=== PATIENT | male | born 1970 | race Caucasian/White ===

== ENCOUNTER 2017-10-06 07:03 | Day surgery (SDC) | payer OTHER ==
[~2017-10-06] VITALS: Ht 185.4 cm; Wt 155.1 kg
[~2017-10-06 07:03] MED LIST: BACLOFEN20 MG PO; DAILY MULTIPLE1 EACH PO; FISH OIL 1,0001 EAC3 PO; MIRALAX17 GM PO; MOBIC15 MG PO; NORCO 10-325 T1 EACH PO; SERTRALINE HCL50 MG PO; STAXYN10 MG PO; UNITHROID50 MCG PO; VITAMIN D250000 UNIT PO
--- NOTE | 2017-10-06 08:56 | NUR ---
10/06/17 0856 Mesha Benoit 0852 PATIENT ARRIVES TO PACU ASLEEP, RESPONDS TO REPEATED VERBAL STIMUIL. RESP EVEN AND UNLABORED, NC AT 23 LITERS, TURNED OFF ON ARRIVAL TO PACU, SATS 93% ON ROOM AIR.
--- NOTE | 2017-10-06 09:49 | NUR ---
PT ALERT, ORIENTED AND ADAMANT ABOUT DRIVING HIMSELF HOME FOLLOWING SCOPE. I DID OFFER HIM A CARE RIDE, AND STRONGLY ADVISED HIM AGAINST DRIVING HIMSELF, AND ALL HE WOULD SAY IS "WE"LL SEE". GOOD VISIT, PT DID REQUEST PRAYER, WILL FOLLOW NEEDED
--- NOTE | 2017-10-07 11:54 | OR ---
[facility] [address], [place] [address] Signed DATE OF OPERATION: 10/06/2017 SURGEON: Ml Handy MD PREOPERATIVE DIAGNOSES: 1. Heme-positive stool x2. 2. Family history of colon cancer (paternal grandfather and father). POSTOPERATIVE DIAGNOSIS: Normal-appearing colon and ilium except for internal hemorrhoids. PROCEDURE: Total colonoscopy to cecum with intubation of the ileum and biopsy of ileum. ANESTHESIA: Intravenous sedation, fentanyl 150 mcg, Versed 8 mg. INDICATION: This 47-year-old morbidly obese white man is a patient of Dr. Breen, who is noted to have heme-positive stool on fecal occult blood testing x2. He has had no gross blood per rectum. He does have family history of colon cancer in his father and paternal grandfather. He is admitted at this time to undergo colonoscopy. He understands the risks of bleeding, infection, and perforation. FINDINGS: The prep was good. Complete colonoscopy was undertaken to the cecum. An intubation of the ileum was accomplished as well. Biopsies were taken of the ileum, though there was no sign of obvious ileitis per se. The remaining colon was normal except for internal hemorrhoids on retroflexed view of the rectum. DESCRIPTION OF PROCEDURE: The patient was brought to the endoscopy suite and placed in lateral decubitus position, given intravenous sedation to the point of slurred speech and nystagmus. Digital rectal examination was normal. The Olympus video colonoscope was passed in the rectum and manipulated throughout the colon ultimately intubating the cecum itself. The ileocecal valve was easily intubated and examination of the terminal ilium showed it to be reasonably normal. Biopsies obtained there nevertheless. The scope was withdrawn to the cecum and carefully withdrawn from the remaining colon. Irrigation undertaken as needed. Retroflexed view in the rectum was undertaken showing internal hemorrhoidal changes. No sign of active bleeding or other problem. The scope was removed. The Electronically Signed By: ML HANDY MD 10/07/17 1154 PATIENT NAME: SISSY HAYS OPERATIVE REPORT DATE OF : 72 REPORT #: [id number] PHYSICIAN: ML HANDY MD PCP: GERARD BREEN DO REPORT IS CONFIDENTIAL AND NOT TO BE RELEASED WITHOUT AUTHORIZATION [facility] [address], [place] [address] Signed patient was taken to recovery in good condition. CONCLUDING DIAGNOSIS: Essentially normal colon and ileum except for internal hemorrhoidal changes. PLAN: Recommend high-fiber diet. Repeat colonoscopy in 5 years based on family history, sooner if clinically indicated. MD JJ Pemberton/BARBL /[id number] cc: Gerard Breen DO Copies: GERARD BREEN DO ~ Electronically Signed By: ML HANDY MD 10/07/17 1154 PATIENT NAME: SISSY HAYS OPERATIVE REPORT DATE OF : 72 REPORT #: [id number] PHYSICIAN: ML HANDY MD PCP: GERARD BREEN DO REPORT IS CONFIDENTIAL AND NOT TO BE RELEASED WITHOUT AUTHORIZATION
== END 2017-10-06 09:40 | disposition home or self-care (01) ==
LOC: DS 07:03 → OPS 07:03 → DS 08:30 → OPS 08:30
PROVIDERS: Surgery
PROC: 0DBB8ZZ Excision of Ileum, Via Natural or Artificial Opening Endoscopic (ICD-10-PCS; 2017-10-06)
PROC: 0DBH8ZZ Excision of Cecum, Via Natural or Artificial Opening Endoscopic (ICD-10-PCS; principal; 2017-10-06 08:30)
DX: K64.8 Other hemorrhoids (principal); K21.9 Gastro-esophageal reflux disease without esophagitis; Z87.891 Personal history of nicotine dependence; G47.30 Sleep apnea, unspecified; E66.01 Morbid (severe) obesity due to excess calories; M47.812 Spondylosis without myelopathy or radiculopathy, cervical region; Z80.0 Family history of malignant neoplasm of digestive organs; Z98.890 Other specified postprocedural states; Z68.42 Body mass index [BMI] 45.0-49.9, adult
CPT/HCPCS: 99153; G0500; J2250; J3010; J7120

== ENCOUNTER 2017-11-16 12:36 | Emergency (ER) | payer OTHER ==
[~2017-11-16] VITALS: Ht 185.4 cm; Wt 154.2 kg
--- OUTSIDE RECORDS SUMMARY | ~2017-11-16 | XMS | Encounter Summary ---
Demographics + + + | Address | [address] | | | [place] [address] | + + + | Home Phone | | + + + | Preferred Language | Unknown | + + + | Marital Status | | + + + | Judaism Affiliation | 1013 | + + + | Race | Unknown | + + + | Ethnic Group | Unknown | + + + Author + + + | Author | Merged With [facility] | | | and [place] | + + + | Organization | Merged With [facility] | | | and [place] | + + + | Address | Unknown | + + + | Phone | Unavailable | + + + Support + + +---------+ + | Name | Relationship | Address | Phone | + + +---------+ + | Lopez Carver | ECON | Unknown | | + + +---------+ + Care Team Providers + +------+ + | Care Certified Addiction Counselor Name | Role | Phone | + +------+ + | Gerard Olivas DO | PCP | | + +------+ + Encounter Details +--------+ + + + + | Date | Type | Department | Care Team | Description | +--------+ + + + + | 11/14/ | Orders Only | [facility] | Maico Klein MD | Cervical spondylosis | | 2018 | | NEUROSURGERY [address] | [address] [place] | with radiculopathy | | | | [address] [place] | [address] | (Primary Dx); | | | | [place] | [address] | Cervical spinal cord | | | | [address] | | compression ([facility]); | | | | [phone] | | Cervical cord | | | | | | myelomalacia ([facility]); | | | | | | Cervical spondylosis | | | | | | with myelopathy; | | | | | | Degenerative disc | | | | | | disease, cervical; | | | | | | Cervical spinal | | | | | | stenosis; Foraminal | | | | | | stenosis of cervical | | | | | | region | +--------+ + + + + Social History + + + +--------+ + | Tobacco Use | Types | Packs/Day | Years | Date | | | | | Used | | + + + +--------+ + | Former Smoker | Cigarettes | 0.25 | 20 | 06/16/1993 - | | | | | | 03/27/2013 | + + + +--------+ + + +------+---+---+ | Smokeless Tobacco: | Chew | | | | Current User | | | | + +------+---+---+ + + | Comments: Currently using chew | + + + + +---------+ + | Alcohol Use | Drinks/We | oz/Week | Comments | | | ek | | | + + +---------+ + | Yes | 0 | 0.0 | Rarely | | | Standard | | | | | drinks or | | | | | | | | | | equivalen | | | | | t | | | + + +---------+ + + + + | Sex Assigned at | Date Recorded | | | | + + + | Not on file | | + + + as of this encounter Plan of Treatment +--------+---------+ + + + | Date | Type | Specialty | Care Team | Description | +--------+---------+ + + + | 12/08/ | Office | Sleep Medicine | Lissa Reyes MD | | | 2017 | Visit | | [address] | | | | | | [place] | | | | | | [address] | | | | | | | | +--------+---------+ + + + as of this encounter Visit Diagnoses + + | Diagnosis | + + | Cervical spondylosis with radiculopathy - Primary | + + | Cervical spondylosis with myelopathy | + + | Cervical spinal cord compression (HCC) | + + | Unspecified disease of spinal cord | + + | Cervical cord myelomalacia (HCC) | + + | Other myelopathy | + + | Cervical spondylosis with myelopathy | + + | Degenerative disc disease, cervical | + + | Degeneration of cervical intervertebral disc | + + | Cervical spinal stenosis | + + | Spinal stenosis in cervical region | + + | Foraminal stenosis of cervical region | + + | Spinal stenosis in cervical region | + +"
--- OUTSIDE RECORDS SUMMARY | ~2017-11-16 | XMS | Encounter Summary ---
Demographics + + + | Address | [address] | | | [place] [address] | + + + | Home Phone | | + + + | Preferred Language | Unknown | + + + | Marital Status | | + + + | Presybeterian Affiliation | 1013 | + + + | Race | Unknown | + + + | Ethnic Group | Unknown | + + + Author + + + | Author | [facility] | | | and [place] | + + + | Organization | [facility] | | | and [place] | + + + | Address | Unknown | + + + | Phone | Unavailable | + + + Support + + +---------+ + | Name | Relationship | Address | Phone | + + +---------+ + | Lopez Carver | ECON | Unknown | | + + +---------+ + Care Team Providers + +------+ + | Care Tubing Tester Name | Role | Phone | + +------+ + | Gerard Olivas DO | PCP | | + +------+ + Reason for Referral Evaluate & Treat (Routine) + + + + + + + | Status | Reason | Specialty | Diagnoses / | Referred By | Referred To | | | | | Procedures | Contact | Contact | + + + + + + + | Authorized | Specialty | Sleep | Diagnoses | [place] | | | Services | Medicine | PENNY | Raudel | [facility] | | | Required | | (obstructive | [place] | Disorder [address] | | | | | sleep | [address] | | | | | apnea) | [address] | [place], | | | | | | [place] [address] | [place] [address] | | | | | | [place], | Phone: | | | | | | [place] [address] | [phone] | | | | | | Phone: | Fax: | | | | | | [phone] | [phone] | | | | | | Fax: | | | | | | | [phone] | | + + + + + + + Reason for Visit + + + | Reason | Comments | + + + | Follow-up | Discuss MRI | + + + Encounter Details +--------+---------+ + + + | Date | Type | Department | Care Team | Description | +--------+---------+ + + + | 11/10/ | Office | [facility] [place] | Raudel Brown | Cervical cord | | 2018 | Visit | NEUROSURGERY [address] | [place] [address] | myelomalacia (HCC) | | | | [address] [place] [address] | [address] [place] | (Primary Dx); | | | | [place], [place] | [place] | Cervical spinal cord | | | | [address] | [address] | compression (HCC); | | | | [phone] | | Cervical spondylosis | | | | | | with radiculopathy; | | | | | | PENNY (obstructive | | | | | | sleep apnea); | | | | | | Cervical spondylosis | | | | | | with myelopathy; | | | | | | Degenerative disc | | | | | | disease, cervical | +--------+---------+ + + + Social History + + [...] + + + as of this encounter Last Filed Vital Signs + + + + | Vital Sign | Reading | Time Taken | + + + + | Blood Pressure | 130/78 | 11/10/2017851 PDT | + + + + | Pulse | 67 | 11/10/2017851 PDT | + + + + | Temperature | - | - | + + + + | Respiratory Rate | - | - | + + + + | Oxygen Saturation | - | - | + + + + | Inhaled Oxygen | - | - | | Concentration | | | + + + + | Weight | 155.6 kg (343 lb 0.6 | 11/10/2017851 PDT | | | oz) | | + + + + | Height | 185.4 cm (6' 1") | 11/10/2017851 PDT | + + + + | Body Mass Index | 45.26 | 11/10/2017851 PDT | + + + + in this encounter Instructions Patient Instructions - Diya Kaminski, Coper Hand - 11/10/2017844 PDTIt wa s a pleasure to see you today. Here is what we discussed. - Let pain be your guide. If you are doing an activity that starts causing you pain back of f and ease back into it slowly. We don't want you taking any risks that do not need to be ta sin. - As you agreed we will discuss your case with Dr. Klein to begin to seek authorization and c tonio for your operation. - If you do choose surgery it would look something like this: -1 day in the hospital, spend the first month lifting no more than 5lbs, no bending, liftin g above your head, or turning your head. -You would wear a neck brace for at least the first month. You will probably have some diff iculty swallowing after surgery which will get better over time. -No driving for the first few weeks to 1 month until you have your strength back. When can turn your head and are no longer taking pain medication then you could drive. -You would need help with things like tying your shoes, putting socks on and what not to pr event you from bending over for that first month at least. -Recovery time would be 3-6 months depending on bone fusion and healing. You will have some waxing and waning of symptoms. The pain will vary in intensity and vary from day to day. As time moves on the frequency and intensity of the pain will slowly go away. You may also hav e some difficulty swallowing after surgery which will get better over time. in this encounter Progress Notes Raudel Brown PA-C - 11/10/2017 0845 PDTFormatting of this note may be different fr om the original. Raudel Brown PA-C [address] [facility], [address] [place] [address] FAX: [phone] NEUROSURGERY FOLLOW-UP CHIEF COMPLAINT: Chief Complaint Patient presents with Follow-up Discuss MRI HISTORY OF PRESENT ILLNESS: The patient is a 47 y.o. male that was last seen on 10/04/2017 for neck and arm pain symptoms that began over 2 years ago. He presents today to follow up and review his Cervical MRI from 10/12/2017 with the complaint of neck and shoulder pain. He states that his symptoms have remained about the same Since he was seen last however overal l has been progressive since his previous MRI He states that he has noticed more weakness in his left arm, and that he is now only able to work on his computer for about 15 minutes and he will have to stop, to let the feeling return to his arms. The patient describes worsening neck pain. His neck pain will radiate to both shoulders..Allison holloway will also have radiating pain in both arms into his hands and down to the fingers. 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 If he is working on the computer or any time he is holding his hands out in front of him they go to sleep and they start to ache. The patient states when he rides his motorcycle both of his arms will fall asleep. He is unable to ride his motorcyc le more than 30 minutes, other barbour he has to stop for about an hour to let the feeling come back into his arms. Took him a whole day to get from [place], [place] to [place], [place] be cause he had to stop so many times. If he turns his neck then it starts to hurt and makes hi s arms go numb. He is not able to go scuba diving as often as he had previously been. This n andre pain and numbness have increased significantly with no improvement. He had to quit going to the gym because he is not able to work out given the increased weakness, pain and numbne ss. His activities of daily living are a struggle to do. It is affecting his life greatly no t being able to do anything with out numbness and pain. The symptoms have been rapidly worsening. He rates the pain as severe. The symptoms are d aily. He describes the pain as numbing, tingling and aching. The patient describes arm symptoms that occur on both sides but worse on the left. The arm symptoms account for 50% of his symptoms. The arm symptoms are intermittent, and the sympt oms travel from the neck into the shoulder blades radiating to both arms and hands. The darius aiken also describes the loss of strength in both arms, the loss of strength in both hands, n umbness of the arms, numbness of the hands and weakness of the hands. The patient is unable to lay on his left shoulder. The patient states he has not noticed any hand weakness. The p atient his balance is okay. The patient does not report any change in bowel or bladder function recently. His symptoms improve with rest. His symptoms worsen with moderate exertion. He has tried PT, NSAIDS and Muscle relaxers. The patient is currently taking Baclofen. Th parth measures are still helping. PAST MEDICAL HISTORY: Past Medical History: Diagnosis Date Anxiety Depression History of kidney stones PAST SURGICAL HISTORY: Past Surgical History: Procedure Laterality Date APPENDECTOMY 1992 BACK SURGERY 2007 Cyst removal from back KNEE SURGERY Right 1993 Knee arthroscopy with lateral release TONSILLECTOMY 2002 VASECTOMY 1994 WRIST SURGERY Right 1991 Cyst Removal; Arnaldo CURRENT MEDICATIONS: Current Outpatient Prescriptions Medication Sig Dispense Refill Acetaminophen (TYLENOL PO) Take by mouth as needed. ergocalciferol (VITAMIN D-2) 50,000 units capsule Take 50,000 Units by mouth Once a wee k. Ergocalciferol (VITAMIN D2) 2000 units TABS ergocalciferol (vitamin D2) 50,000 unit cap sabrina Take 1 capsule every week by oral route. levothyroxine (SYNTHROID) 50 mcg tablet Take 1 tablet by mouth Daily. meloxicam (MOBIC) 15 mg tablet meloxicam 15 mg tablet Take 1 tablet every day by oral route with meals. pseudoePHEDrine (SUDAFED) 30 mg tablet Take 30 mg by mouth as needed. sertraline (ZOLOFT) 50 mg tablet traZODone (DESYREL) 100 mg tablet Take 100 mg by mouth nightly as needed. No current facility-administered medications for this visit. ALLERGIES: Allergies Allergen Reactions Meloxicam "irritable" SOCIAL HISTORY: The patient reports that he quit smoking about 4 years ago. His smoking use included Cigar ettes. He started smoking about 24 years ago. He has a 5.00 pack-year smoking history. His s mokeless tobacco use includes Chew. He reports that he drinks alcohol. He reports that he do es not use drugs. FAMILY HISTORY: Family History Problem Relation Age of Onset Arthritis Mother Miscarriages / stillbirths Mother Stroke Mother Vision loss Mother Multiple sclerosis Mother 58 Cancer Father Early Father Substance abuse Father Substance abuse Brother Vision loss Brother Cancer Paternal Grandmother Cancer Paternal Grandfather Substance abuse Brother Vision loss Brother Cancer Paternal Uncle REVIEW OF SYSTEMS GENERALLY: No fever, no night sweats, no anemia, no fatigue, no recent profound weight ch anges. EYES: No eye problems, no use of corrective lenses, no eye injury, no double vision, no bl indness. EARS, NOSE, AND THROAT: No changes in taste or smell, no hearing difficulty, no ringing in the ears, no ear drainage, no dizziness, no voice changes, no difficulty swallowing, no sig nificant snoring, no sleep apnea, no sinus problems, no major dental work. NEUROLOGICALLY: Please see the review of systems discussed above in the history of present illness. In addition, the patient has numbness and pain of arms, awake with numbness/pain, weakness, pain in neck, pain in back. PSYCHIATRIC: No depression,+ difficulty sleeping, no sleep disorders, no anxiety, no bipol ar disorder, no psychotic episodes. CARDIOVASCULAR: No heart attacks, no heart murmur, no heart fluttering, no chest pain, no ankle swelling. LUNG DISEASE: No shortness of breath, no cough, no tuberculosis, no bloody cough, no asth ma, no emphysema/COPD. GASTROINTESTINAL: No bowel disease, no nausea or vomiting, no rectal bleeding, no constipa tion, no stool incontinence, no liver disease, no gallbladder disease, no abdominal pain, no ulcers. KIDNEY DISEASE: No urinary frequency, no painful or difficult urination, no incontinence. ENDOCRINE: No diabetes, no thyroid disease, no osteopenia or osteoporosis, no breast drain age. SKIN: No breast lumps, no skin changes, no rashes, no itches. HEMATOLOGIC/LYMPHATIC: No enlarged lymph nodes, no easy or unusual bleeding, no personal h istory of cancer. RHEUMATOLOGIC: No joint arthritis, no rheumatoid arthritis. PHYSICAL EXAMINATION: Blood pressure 130/78, pulse 67, height 1.854 m (6' 1"), weight (!) 155.6 kg (343 lb 0.6 oz ). Body mass index is 45.26 kg/m. GENERAL: Braden Carver is in no acute distress with unlabored respirations. The patient d oes not appear uncomfortable throughout the exam today. HEENT: Head: Normocephalic/atraumatic with no areas of recent trauma. Eyes: Normal sclerae without icterus. Ears: No drainage or tenderness. Nasopharnyx: Clear without drainage. Oropharnyx: Clear without erythema. NECK (ANTERIOR): Supple and without palpable masses. Short thick neck CHEST: Clear to ausculation without crackles or wheeze. HEART: Regular rate and rhythm without murmurs. ABDOMEN: Soft, non-tender, non-distended, and without palpable masses. The patient is obese . SPINE: There is no tenderness in the midline of the cervical spine at the C-4, C-5, C-6 and C-7. Range of motion of the neck is limited. Rotation and/or extension does not cause symptoms to radiate into either arm. Flexion and extension of the neck does not cause severe discomf ort. There is no tenderness of there thoracic or lumbar spine. There is no major deformity noted. EXTREMITIES: No cyanosis, clubbing, or edema. Distal pulses are palpable. NEUROLOGICAL EXAM: MENTAL STATUS: The patient is awake, alert, and oriented. He follows simple and complex commands. His speech is fluent, he comprehends speech well, and he repeats well. 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 CRANIAL NERVES: II: Acuity is intact. Velasquez are full to confrontation. III, IV, : The pupils are reactive. Extraocular movements are intact. No ptosis is note d. V: Facial sensation is intact and symmetric. VII: Facial movements are symmetric. VIII: Hearing is intact bilaterally. IX, X: The uvula and palate move appropriately. XI: Shrug is equal bilaterally. XII: Tongue protrusion is midline. MOTOR EXAM: (5 IS NORMAL) * Indicates pain limited MUSCLE/ MOVEMENT: RIGHT LEFT Deltoids 5 5 Biceps 5 5 Triceps 5 5 Wrist Flexion 5 5 Wrist Extension 5 5 Median Intrinsics 4+/5 5 Ulnar Intrinsics 4+/5 5 Clinical Practitioner Strength 4+/5 5 Hip Flexion 5 5 Hip Extension 5 5 Knee Flexion 5 5 Knee Extension 5 5 Dorsiflexion 5 5 Extensor Hallicus Longus 5 5 Plantarflexion 5 5 SENSORY EXAM: Sensory exam shows medial forearm decreased sensation bilaterally. Decreased sensation on 4 th and 5th digits, more so than the others. REFLEXES: (2 OR 2+ IS NORMAL) REFLEX: RIGHT LEFT BICEPS 1 1 BRACHIORADIALIS 1 1 TRICEPS 1 1 PATELLAR 2 3+ ACHILLES 1 1 CARPENTER'S ABSENT Positive PLANTAR DOWNGOING DOWNGOING GAIT: Gait is steady. TEST AND RADIOGRAPHIC REVIEW: The patient's imaging was reviewed in detail with the patient today during the visit. The MRI from 2018 shows progressive degenerative changes at C4-5 and C5-6 with central stenosis as well as bilateral foraminal stenosis. This is compared to his 2015 MRI he continues wit h early cord signal changes noted at these levels Cervical x-rays from 08/23/2017 show no major instability. ASSESSMENT: NEUROSURGICAL DIAGNOSES: Encounter Diagnoses Name Primary? Cervical cord myelomalacia (HCC) Yes Cervical spinal cord compression (HCC) Cervical spondylosis with radiculopathy PENNY (obstructive sleep apnea) Cervical spondylosis with myelopathy Degenerative disc disease, cervical GENERAL DIAGNOSES: Past Medical History: Diagnosis Date Anxiety Depression History of kidney stones PLAN: Braden Carver presented today for re-evaluation of an ongoing neck issue and his neurologi c problems. The patient has progressive neck and arm symptoms. His MRI was recently denied and he stil l has not had the evaluation I appropriately recommended. The delay has led to a worsening of his exam and clinical status. I am now recommending an urgent MRI. The patient has prog ressive symptoms despite non-operative measures. We had a lengthy discussion with the patient about his options for care including surgical and non-surgical options. In discussing the surgical options, we discussed in detail the patient's options for a cerv ical disc arthroplasty at C4-5 and C5-6. The patient understands that in most instances the recovery from surgery can be lengthy and sometimes difficult. I would like to review the m ost recent imaging with but I suspect we will continue to recommend the above mention ed surgery. In addition I would like the patient to have evaluation for possible obstructiv e sleep apnea. The patient would like to be considered for surgery as discussed and would like us to seek authorization and clearance for the operation. I, Raudel Brown PA-C, personally performed the services described in this documentation , as scribed by Diya Tabor in my presence, and it is both accurate and complete. Raudel Brown PA-C 11/10/2017 ELECTRONICALLY SIGNED BY: Raudel Brown PA-C, 11/10/2017 9:23in this encounter Plan of Treatment +--------+---------+ + + + | Date | Type | Specialty | Care Team | Description | +--------+---------+ + + + | 12/08/ | Office | Sleep Medicine | Lissa Reyes MD | | | 2017 | Visit | | [address] | | | | | | [place] | | | | | | [address] | | | | | | | | +--------+---------+ + + + + +--------+ + + | Name | Priori | Associated Diagnoses | Order Schedule | | | ty | | | + +--------+ + + | * [facility] [place] Sleep Disorder - | Routin | PENNY (obstructive | Ordered: 11/10/2017 | | AMB Referral | e | sleep apnea) | | + +--------+ + + as of this encounter Visit Diagnoses + + | Diagnosis | + + | Cervical cord myelomalacia (HCC) - Primary | + + | Other myelopathy | + + | Cervical spinal cord compression (HCC) | + + | Unspecified disease of spinal cord | + + | Cervical spondylosis with radiculopathy | + + | Cervical spondylosis with myelopathy | + + | PENNY (obstructive sleep apnea) | + + | Obstructive sleep apnea (adult) (pediatric) | + + | Cervical spondylosis with myelopathy | + + | Degenerative disc disease, cervical | + + | Degeneration of cervical intervertebral disc | + +
--- OUTSIDE RECORDS SUMMARY | ~2017-11-16 | XMS | Encounter Summary ---
Demographics + + + | Address | [address] | | | [place] [address] | + + + | Home Phone | | + + + | Preferred Language | Unknown | + + + | Marital Status | | + + + | Jehovah'S Witness Affiliation | 1013 | + + + | Race | Unknown | + + + | Ethnic Group | Unknown | + + + Author + + + | Author | [facility] | | | and [place] | + + + | Organization | [facility] | | | and [place] [...] Team Providers + +------+ + | Care Newspaper Press Operator Apprentice Name | Role | Phone | + +------+ + | Gerard Olivas DO | PCP | | + +------+ + Reason for Referral Diagnostic/Screening (Emergency) +--------+--------+ + + + + | Status | Reason | Specialty | Diagnoses / | Referred By | Referred To | | | | | Procedures | Contact | Contact | +--------+--------+ + + + + | Closed | | Radiology | Diagnoses | Maico Klein | [facility] | | | | | Cervical | MD [address] | [address] | | | | | cord | [address] | [place], | | | | | myelomalacia | [place] [address] | [place] | | | | | ([facility]) | [place], | [address] | | | | | Cervical | [place] [address] | Phone: | | | | | spinal cord | Phone: | [phone] | | | | | compression | [phone] | Fax: | | | | | (HCC) | Fax: | [phone] | | | | | Cervical | [phone] | | | | | | spinal | | | | | | | stenosis | | | | | | | Cervical | | | | | | | spondylosis | | | | | | | with | | | | | | | radiculopath | | | | | | | y Foraminal | | | | | | | stenosis of | | | | | | | cervical | | | | | | | region | | | | | | | Degenerative | | | | | | | disc | | | | | | | disease, | | | | | | | cervical | | | | | | | Cervical | | | | | | | spondylosis | | | | | | | with | | | | | | | myelopathy | | | | | | | Procedures | | | | | | | MRI Cervical | | | | | | | Spine wo | | | | | | | Contrast | | | +--------+--------+ + + + + Diagnostic/Screening (Emergency) +--------+--------+ + + + + | Status | Reason | Specialty | Diagnoses / | Referred By | Referred To | | | | | Procedures | Contact | Contact | +--------+--------+ + + + + | Closed | | Radiology | Diagnoses | Maico Klein | [facility] | | | | | Cervical | MD [address] | [address] | | | | | cord | [address] | [place], | | | | | myelomalacia | [address] | [place] | | | | | (HCC) | [place], | [address] | | | | | Cervical | [place] [address] | Phone: | | | | | spinal cord | Phone: | [phone] | | | | | compression | [phone] | Fax: | | | | | (HCC) | Fax: | [phone] | | | | | Cervical | [phone] | | | | | | spinal | | | | | | | stenosis | | | | | | | Cervical | | | | | | | spondylosis | | | | | | | with | | | | | | | radiculopath | | | | | | | y Foraminal | | | | | | | stenosis of | | | | | | | cervical | | | | | | | region | | | | | | | Degenerative | | | | | | | disc | | | | | | | disease, | | | | | | | cervical | | | | | | | Cervical | | | | | | | spondylosis | | | | | | | with | | | | | | | myelopathy | | | | | | | Procedures | | | | | | | MRI Cervical | | | | | | | Spine wo | | | | | | | Contrast | | | +--------+--------+ + + + + Reason for Visit Diagnostic/Screening (Emergency) +--------+--------+ + + + + | Status | Reason | Specialty | Diagnoses / | Referred By | Referred To | | | | | Procedures | Contact | Contact | +--------+--------+ + + + + | Closed | | Radiology | Diagnoses | Maico Klein | [facility] | | | | | Cervical | [address] | [address] | | | | | cord | [address] | [place], | | | | | myelomalacia | [address] | [place] | | | | | (HCC) | [place], | [address] | | | | | Cervical | [place] [address] | Phone: | | | | | spinal cord | Phone: | [phone] | | | | | compression | [phone] | Fax: | | | | | (HCC) | Fax: | [phone] | | | | | Cervical | [phone] | | | | | | spinal | | | | | | | stenosis | | | | | | | Cervical | | | | | | | spondylosis | | | | | | | with | | | | | | | radiculopath | | | | | | | y Foraminal | | | | | | | stenosis of | | | | | | | cervical | | | | | | | region | | | | | | | Degenerative | | | | | | | disc | | | | | | | disease, | | | | | | | cervical | | | | | | | Cervical | | | | | | | spondylosis | | | | | | | with | | | | | | | myelopathy | | | | | | | Procedures | | | | | | | MRI Cervical | | | | | | | Spine wo | | | | | | | Contrast | | | +--------+--------+ + + + + Encounter Details +--------+ + + + + | Date | Type | Department | Care Team | Description | +--------+ + + + + | 10/12/ | Hospital | [facility] | Maico Klein MD | Cervical cord | | 2018 | Encounter | MED CTR MRI [address] | [address] [place] | myelomalacia ([facility]); | | | | [address] [place], | [address] [place], [place] | Cervical spinal cord | | | | [place] [address] | [address] | compression ([facility]); | | | | [phone] | | Cervical spinal | | | | | | stenosis; Cervical | | | | | | spondylosis with | | | | | | radiculopathy; | | | | | | Foraminal stenosis | | | | | | of cervical region; | | | | | | Degenerative disc | | | | | | disease, cervical; | | | | | | Cervical spondylosis | | | | | | with myelopathy | +--------+ + + + + Social [...] + + + as of this encounter Medications at Time of Discharge + + +-------+---------+ + + | Medication | Sig. | Disp. | Refills | Start | End Date | | | | | | Date | | + + +-------+---------+ + + | Acetaminophen | Take by mouth as | | | | | | (TYLENOL PO) | needed. | | | | | + + +-------+---------+ + + | Ergocalciferol | ergocalciferol | | | | | | (VITAMIN D2) 2000 | (vitamin D2) 50,000 | | | | | | units TABS | unit capsule Take 1 | | | | | | | capsule every week | | | | | | | by oral route. | | | | | + + +-------+---------+ + + | levothyroxine | Take 1 tablet by | | | | | | (SYNTHROID) 50 mcg | mouth Daily. | | | | | | tablet | | | | | | + + +-------+---------+ + + | meloxicam (MOBIC) | meloxicam 15 mg | | | | | | 15 mg tablet | tablet Take 1 tablet | | | | | | | every day by oral | | | | | | | route with meals. | | | | | + + +-------+---------+ + + | sertraline | | | | 08/10/19 | | | (ZOLOFT) 50 mg | | | | 18 | | | tablet | | | | | | + + +-------+---------+ + + | baclofen | | | | 08/10/19 | | | (LIORESAL) 20 mg | | | | 18 | 8 | | tablet | | | | | | + + +-------+---------+ + + as of this encounter Plan of Treatment +--------+---------+ + + + | Date | Type | Specialty | Care Team | Description | +--------+---------+ + + + | 12/08/ | Office | Sleep Medicine | Lissa Reyes MD | | | 2018 | Visit | | [address] | | | | | | [place] | | | | | | [address] | | | | | | | | +--------+---------+ + + + as of this encounter Procedures + +--------+ + + + | Procedure Name | Priori | Date/Time | Associated Diagnosis | Comments | | | ty | | | | + +--------+ + + + | MRI CERVICAL SPINE | STAT | 10/12/2017 | Cervical cord | Results for this | | WO CONTRAST | | 1118 PDT | myelomalacia (HCC) | procedure are in the | | | | | Cervical spinal cord | results section. | | | | | compression (HCC) | | | | | | Cervical spinal | | | | | | stenosis Cervical | | | | | | spondylosis with | | | | | | radiculopathy | | | | | | Foraminal stenosis | | | | | | of cervical region | | | | | | Degenerative disc | | | | | | disease, cervical | | | | | | Cervical spondylosis | | | | | | with myelopathy | | + +--------+ + + + in this encounter Results MRI Cervical Spine wo Contrast (10/12/2017 1118) + + + | Narrative | Performed At | + + + | MRI CERVICAL SPINE WO CONTRAST 10/12/2017 11:01 AM HISTORY: | [facility] | | Cervical stenosis, arm weakness, increased reflexes. COMPARISON: | | | 02/04/2015 PROTOCOL: Sagittal T2, sagittal T1, axial T2, axial | | | GRE, sagittal STIR, coronal T1. FINDINGS: Vertebral body | | | heights are grossly preserved. Mild multilevel disc marginal | | | osteophytosis and disc space narrowing most pronounced at C4-C5 and | | | C5-C6. Modic endplate changes are seen at these levels. Osseous | | | hemangioma is noted in the T1 vertebral body. Prevertebral and | | | paraspinal soft tissues show no acute abnormality. Cervicomedullary | | | junction and atlantoaxial articulations are unremarkable. Imaged | | | spinal cord demonstrates normal signal with no evidence for | | | myelomalacia or mass lesions. C2-3: No central canal or neural | | | foramina canal stenosis. C3-4: Minimal uncinate spondylosis and | | | facet spondylosis is seen causing moderate right and mild to moderate | | | left osseous neuroforaminal narrowing. Mild central spinal stenosis | | | with the thecal sac measuring 9 mm in midline AP dimension. C4-5: | | | Broad-based posterior disc bulge with moderate left uncovertebral | | | spondylosis and suggestion of a asymmetrically prominent left | | | posterior disc protrusion causes moderately severe central spinal | | | stenosis with the thecal sac measuring 7 mm in midline AP dimension | | | and prominent narrowing of the lateral recesses and bilateral | | | subarticular recesses there is severe left and moderately severe | | | right neuroforaminal narrowing. C5-6: Small broad-based posterior | | | disc bulge with bilateral uncovertebral spondylosis causes severe | | | left and moderate right neuroforaminal narrowing. There is moderate | | | central spinal stenosis with the thecal sac measuring 8 mm in midline | | | AP dimension. C6-7: Mild bilateral uncinate spondylosis without | | | significant neuroforaminal or central spinal stenosis. C7-T1: No | | | central canal or neural foramina canal stenosis. IMPRESSION - | | | C4-5: Broad-based posterior disc bulge with moderate left | | | uncovertebral spondylosis and suggestion of a asymmetrically | | | prominent left posterior disc protrusion causes moderately severe | | | central spinal stenosis with the thecal sac measuring 7 mm in midline | | | AP dimension and prominent narrowing of the lateral recesses and | | | bilateral subarticular recesses. Severe left and moderately severe | | | right neuroforaminal narrowing. -Findings have mildly worsened since | | | 2014. C5-6: Small broad-based posterior disc bulge with bilateral | | | uncovertebral spondylosis causes severe left and moderate right | | | neuroforaminal narrowing. Moderate central spinal stenosis with the | | | thecal sac measuring 8 mm in midline AP dimension. -Findings of | | | mildly worsened since 2014 Dictated and Signed by: | | | Santana Brenner MD Electronically signed: 10/12/2017 11:59 AM | | + + + + + | Procedure Note | + + | Dain, Rad Results In - 10/12/2017 1202 PDT MRI CERVICAL SPINE WO CONTRAST 10/12/2017 | | 11:01 AM HISTORY: Cervical stenosis, arm weakness, increased reflexes.COMPARISON: | | 02/04/2015PROTOCOL: Sagittal T2, sagittal T1, axial T2, axial GRE, sagittal STIR, | | coronalT1.FINDINGS:Vertebral body heights are grossly preserved. Mild multilevel disc | | marginalosteophytosis and disc space narrowing most pronounced at C4-C5 and C5-C6. | | Modicendplate changes are seen at these levels. Osseous hemangioma is noted in the | | C0zifsrmhrx body. Prevertebral and paraspinal soft tissues show no acuteabnormality. | | Cervicomedullary junction and atlantoaxial articulations areunremarkable. Imaged spinal | | cord demonstrates normal signal with no evidence formyelomalacia or mass lesions.C2-3: | | No central canal or neural foramina canal stenosis.C3-4: Minimal uncinate spondylosis | | and facet spondylosis is seen causingmoderate right and mild to moderate left osseous | | neuroforaminal narrowing. Mildcentral spinal stenosis with the thecal sac measuring 9 mm | | in midline APdimension.C4-5: Broad-based posterior disc bulge with moderate left | | uncovertebralspondylosis and suggestion of a asymmetrically prominent left posterior | | discprotrusion causes moderately severe central spinal stenosis with the thecal | | sacmeasuring 7 mm in midline AP dimension and prominent narrowing of the lateralrecesses | | and bilateral subarticular recesses there is severe left and moderatelysevere right | | neuroforaminal narrowing.C5-6: Small broad-based posterior disc bulge with bilateral | | uncovertebralspondylosis causes severe left and moderate right neuroforaminal | | narrowing.There is moderate central spinal stenosis with the thecal sac measuring 8 mm | | inmidline AP dimension.C6-7: Mild bilateral uncinate spondylosis without significant | | neuroforaminal orcentral spinal stenosis.C7-T1: No central canal or neural foramina | | canal stenosis.IMPRESSION -C4-5: Broad-based posterior disc bulge with moderate left | | uncovertebralspondylosis and suggestion of a asymmetrically prominent left posterior | | discprotrusion causes moderately severe central spinal stenosis with the thecal | | sacmeasuring 7 mm in midline AP dimension and prominent narrowing of the lateralrecesses | | and bilateral subarticular recesses. Severe left and moderately severeright | | neuroforaminal narrowing.-Findings have mildly worsened since 2014.C5-6: Small | | broad-based posterior disc bulge with bilateral uncovertebralspondylosis causes severe | | left and moderate right neuroforaminal narrowing.Moderate central spinal stenosis with | | the thecal sac measuring 8 mm in midlineAP dimension.-Findings of mildly worsened since | | 2014Dictated and Signed by: Santana Brenner MD Electronically signed: 10/12/2017 11:59 AM | | | |C5-6: Small broad-based posterior disc bulge with bilateral uncovertebral | |spondylosis causes severe left and moderate right neuroforaminal narrowing. | |There is moderate central spinal stenosis with the thecal sac measuring 8 mm in | |midline AP dimension. | | | |C6-7: Mild bilateral uncinate spondylosis without significant neuroforaminal or | |central spinal stenosis. | | | |C7-T1: No central canal or neural foramina canal stenosis. | | | | | |IMPRESSION - | |C4-5: Broad-based posterior disc bulge with moderate left uncovertebral | |spondylosis and suggestion of a asymmetrically prominent left posterior disc | |protrusion causes moderately severe central spinal stenosis with the thecal sac | |measuring 7 mm in midline AP dimension and prominent narrowing of the lateral | |recesses and bilateral subarticular recesses. Severe left and moderately severe | |right neuroforaminal narrowing. | |-Findings have mildly worsened since 2014. | | | |C5-6: Small broad-based posterior disc bulge with bilateral uncovertebral | |spondylosis causes severe left and moderate right neuroforaminal narrowing. | |Moderate central spinal stenosis with the thecal sac measuring 8 mm in midline | |AP dimension. | |-Findings of mildly worsened since 2014 | | | |Dictated and Signed by: Santana Brenner MD | | Electronically signed: 10/12/2017 11:59 AM | + + + +---------+ + + | Performing | Address | City/State/Zipcode | Phone Number | | Organization | | | | + +---------+ + + | [facility] | | | | + +---------+ + + in this encounter Visit Diagnoses + + | Diagnosis | + + | Cervical cord myelomalacia (HCC) | + + | Other myelopathy | + + | Cervical spinal cord compression (HCC) | + + | Unspecified disease of spinal cord | + + | Cervical spinal stenosis | + + | Spinal stenosis in cervical region | + + | Cervical spondylosis with radiculopathy | + + | Cervical spondylosis with myelopathy | + + | Foraminal stenosis of cervical region | + + | Spinal stenosis in cervical region | + + | Degenerative disc disease, cervical | + + | Degeneration of cervical intervertebral disc | + + | Cervical spondylosis with myelopathy | + +"
--- OUTSIDE RECORDS SUMMARY | ~2017-11-16 | XMS | Encounter Summary ---
Demographics + + + | Address | [address] | | | [place] [address] | + + + | Home Phone | | + + + | Preferred Language | Unknown | + + + | Marital Status | | + + + | Restorationism Affiliation | 1013 | + + + | Race | Unknown | + + + | Ethnic Group | Unknown | + + + Author + + + | Author | [facility] | | | and [place] | + + + | Organization | [facility] | | | and [place] | [...] Team Providers + +------+ + | Care Whiskey Filterer Name | Role | Phone | + +------+ + | Gerard Olivas DO | PCP | | + +------+ + Encounter Details +--------+ + + + + | Date | Type | Department | Care Team | Description | +--------+ + + + + | 10/04/ | Procedure | [facility] | | | | 2017 | Pass | [facility] MRI [address] | | | | | | [address] [place], | | | | | | [place] [address] | | | | | | [phone] | | | +--------+ + + + + Social [...] [place] | | | | | | [address] | | | | | | | | +--------+---------+ + + + as of this encounter Visit Diagnoses Not on filein this encounter"
--- OUTSIDE RECORDS SUMMARY | ~2017-11-16 | XMS | Clinical Summary ---
Demographics + + + | Address | [address] | | | [place] [address] | + + + | Home Phone | | + + + | Preferred Language | Unknown | + + + | Marital Status | | + + + | Anglican Affiliation | 1013 | + + + | Race | Unknown | + + + | Ethnic Group | Unknown | + + + Author + + + | Author | [facility] | | | and [place] | + + + | Organization | [facility] | | | and [place] | [...] Team Providers + +------+ + | Care Military Pay Clerk Name | Role | Phone | + +------+ + | Gerard Olivas DO | PP | | + +------+ + Allergies + + + + + + | Active Allergy | Reactions | Severity | Noted | Comments | | | | | Date | | + + + + + + | Meloxicam | | | 01/15/20 | "irritable" | | | | | 15 | | + + + + + + Current Medications + + +-------+---------+------+------+-------+ | Prescription | Sig. | Disp. | Refills | Star | End | Statu | | | | | | t | Date | s | | | | | | Date | | | + + +-------+---------+------+------+-------+ | Acetaminophen | Take by mouth as | | | | | Activ | | (TYLENOL PO) | needed. | | | | | e | + + +-------+---------+------+------+-------+ | meloxicam (MOBIC) | meloxicam 15 mg | | | | | Activ | | 15 mg tablet | tablet Take 1 tablet | | | | | e | | | every day by oral | | | | | | | | route with meals. | | | | | | + + +-------+---------+------+------+-------+ | levothyroxine | Take 1 tablet by | | | | | Activ | | (SYNTHROID) 50 mcg | mouth Daily. | | | | | e | | tablet | | | | | | | + + +-------+---------+------+------+-------+ | Ergocalciferol | ergocalciferol | | | | | Activ | | (VITAMIN D2) 2000 | (vitamin D2) 50,000 | | | | | e | | units TABS | unit capsule Take 1 | | | | | | | | capsule every week | | | | | | | | by oral route. | | | | | | + + +-------+---------+------+------+-------+ | sertraline | | | | 05/1 | | Activ | | (ZOLOFT) 50 mg | | | | 6/20 | | e | | tablet | | | | 18 | | | + + +-------+---------+------+------+-------+ | traZODone | Take 100 mg by mouth | | | | | Activ | | (DESYREL) 100 mg | nightly as needed. | | | | | e | | tablet | | | | | | | + + +-------+---------+------+------+-------+ | ergocalciferol | Take 50,000 Units by | | | 08/0 | | Activ | | (VITAMIN D-2) 50,000 | mouth Once a week. | | | 9/20 | | e | | units capsule | | | | 18 | | | + + +-------+---------+------+------+-------+ | pseudoePHEDrine | Take 30 mg by mouth | | | | | Activ | | (SUDAFED) 30 mg | as needed. | | | | | e | | tablet | | | | | | | + + +-------+---------+------+------+-------+ | baclofen | | | | 05/1 | 08/1 | Disco | | (LIORESAL) 20 mg | | | | 6/20 | 7/20 | ntinu | | tablet | | | | 18 | 18 | ed | + + +-------+---------+------+------+-------+ Active Problems + + + | Problem | Noted Date | + + + | PENNY (obstructive sleep apnea) | 11/10/2017 | + + + | Cervical spondylosis with myelopathy | 10/04/2017 | + + + | Cervical spondylosis with radiculopathy | 06/18/2015 | + + + | Cervical spinal cord compression (HCC) | 06/18/2015 | + + + | Degenerative disc disease, cervical | 06/18/2015 | + + + | Cervical spinal stenosis | 06/18/2015 | + + + | Foraminal stenosis of cervical region | 06/18/2015 | + + + | Cervical cord myelomalacia (HCC) | 06/18/2015 | + + + Encounters +--------+ + + + + | Date | Type | Specialty | Care Team | Description | +--------+ + + + + | 11/14/ | Telephone | | Maico Klein MD | Referral | | 2017 | | | | (PreAuthorization) | +--------+ + + + + | 11/14/ | Orders Only | | Maico Klein MD | Cervical spondylosis | | 2017 | | | | with radiculopathy | | | | | | (Primary Dx); | | | | | | Cervical spinal cord | | | | | | compression (HCC); | | | | | | Cervical cord | | | | | | myelomalacia (HCC); | | | | | | Cervical [...] region | +--------+ + + + + | 11/10/ | Office | | Raudel Brown | Cervical cord | | 2018 | Visit | | VALENT[place] Felipe | myelomalacia ([facility]) | | | | | | (Primary Dx); | | | | | | Cervical spinal cord | | | | | | compression (HCC); | | | | | | Cervical [...] | | | | disease, cervical | +--------+ + + + + | 10/12/ | Hospital | | Maico Klein MD | Cervical cord | | 2017 | Encounter | | | myelomalacia (HCC); | | | | | | Cervical spinal cord | | | | | | compression (HCC); | | | | | | Cervical [...] myelopathy | +--------+ + + + + | 10/04/ | Office | | Maico Klein MD | Cervical cord | | 2017 | Visit | | | myelomalacia (HCC) | | | | | | (Primary Dx); | | | | | | Cervical spinal cord | | | | | | compression ([facility]); | | | | | [...] myelopathy | +--------+ + + + + | 10/04/ | Procedure | | | | | 2017 | Pass | | | | +--------+ + + + + | 10/04/ | Telephone | | Maico Klein MD | Imaging Only | | 2017 | | | | (Cervical MRI) | +--------+ + + + + | 09/25/ | Telephone | | Maico Klein MD | Referral (Follow up) | | 2018 | | | | | +--------+ + + + + | 08/23/ | Office | | Raudel Brown | Cervical spinal cord | | 2017 | Visit | | VALENTIN Felipe | compression (HCC) | | | | | | (Primary Dx); | | | | | | Cervical spondylosis | | | | | | with radiculopathy; | | | | | | Foraminal stenosis | | | | | | of cervical region; | | | | | | Cervical spinal | | | | | | stenosis; Cervical | | | | | | cord myelomalacia | | | | | | (HCC); Degenerative | | | | | | disc disease, | | | | | | cervical | +--------+ + + + + | 08/23/ | Hospital | | Maico Klein MD | Neck pain | | 2018 | Encounter | | | | +--------+ + + + + from Last 3 Months Family History + + +------+ + | Medical History | Relation | Name | Comments | + + +------+ + | Substance abuse | Brother | | | + + +------+ + | Vision loss | Brother | | | + + +------+ + | Substance abuse | Brother | | | + + +------+ + | Vision loss | Brother | | | + + +------+ + | Cancer | Father | | | + + +------+ + | Early | Father | | | + + +------+ + | Substance abuse | Father | | | + + +------+ + | Arthritis | Mother | | | + + +------+ + | Miscarriages / | Mother | | | | stillbirths | | | | + + +------+ + | Multiple sclerosis | Mother | | | + + +------+ + | Stroke | Mother | | | + + +------+ + | Vision loss | Mother | | | + + +------+ + | Cancer | Paternal | | | | | Grandfath | | | | | er | | | + + +------+ + | Cancer | Paternal | | | | | Grandmoth | | | | | er | | | + + +------+ + | Cancer | Paternal | | | | | Uncle | | | + + +------+ + + +------+ + + | Relation | Name | Status | Comments | + +------+ + + | Brother | | | | + +------+ + + | Brother | | Alive | | + +------+ + + | Daughter | | Alive | | + +------+ + + | Father | | | | | | | (Age | | | | | 52) | | + +------+ + + | Maternal Grandfather | | | | + +------+ + + | Maternal Grandmother | | | | + +------+ + + | Mother | | Alive | | + +------+ + + | Paternal Grandfather | | | | + +------+ + + | Paternal Grandmother | | | | + +------+ + + | Paternal Uncle | | Alive | | + +------+ + + | Paternal Uncle | | | | + +------+ + + | Son | | Alive | | + +------+ + + | Son | | Alive | | + +------+ + + Social History + + + [...] on file | | + + + Last Filed Vital Signs + + + + | Vital Sign | Reading | Time Taken | + + + + | Blood Pressure | 130/78 | 11/10/2017851 PDT | + + + + | Pulse | 67 | 11/10/2017851 PDT | + + + + | Temperature | - | - | + + + + | Respiratory Rate | 20 | 10/04/2017 1247 PDT | + + + + | Oxygen [...] | Body Mass Index | 45.26 | 11/10/2017 0852 PDT | + + + + Plan of Treatment +--------+---------+ + + + | Date | Type | Specialty | Care Team | Description | +--------+---------+ + + + | 12/08/ | Office | | Lissa Reyes MD | | | 2018 | Visit | | [address] | | | | | | [place] | | | | | | [address] | | | | | | | | +--------+---------+ + + + + + + + + | Health Maintenance | Due Date | Last Done | Comments | + + + + + | Vaccine: | | 11/20/1973 | | | Dtap/Tdap/Td (2 - | 0 | | | | Tdap) | | | | + + + + + | Vaccine: Influenza | | | | | (#1) | 8 | | | + + + + + Procedures + +--------+ + + + | [...] | + +--------+ + + + | XR CERVICAL SPINE 4 | Routin | 08/23/2017 | Neck pain | Results for this | | OR 5 VWS | e | 1456 PDT | | procedure are in the | | | | | | results section. | + +--------+ + + + from Last 3 Months Results MRI Cervical Spine wo Contrast (10/12/2017 [...] hemangioma is noted in the | | [id number] body. Prevertebral and paraspinal soft tissues show [...] | | | + +---------+ + + XR Cervical Spine 4 or 5 Vws (08/23/2017 1456) + + + | Narrative | Performed At | + + + | CLINICAL INFORMATION: neck pain. COMPARISON: 06/18/2015 | [facility] | | FINDINGS: AP, lateral, and lateral flexion and extension views of | | | the cervical spine. Alignment: Normal. No listhesis. No | | | abnormal translation with flexion or extension. Vertebral bodies: | | | Normal in height. No vertebral fracture. Disk spaces: Mild disc | | | height loss at C4-C5 and C5-C6. Mild uncovertebral hypertrophy at | | | C5 and C6, left greater than right. Soft tissues: Normal. | | | IMPRESSION - Mild cervical spondylosis at C4-C5 and C5-C6. No | | | evidence of instability. Dictated and Signed by: | | | Rashid Gonzalez MD Electronically signed: 08/23/2017 3:42 PM | | + + + + + | Procedure Note | + + | Dain, Rad Results In - 08/23/2017 1546 PDT | | CLINICAL INFORMATION: neck pain. | | | | COMPARISON: 06/18/2015 | | | | FINDINGS: | | AP, lateral, and lateral flexion and extension views of the cervical spine. | | | | Alignment: Normal. No listhesis. No abnormal translation with flexion or | | extension. | | | | Vertebral bodies: Normal in height. No vertebral fracture. | | | | Disk spaces: Mild disc height loss at C4-C5 and C5-C6. Mild uncovertebral | | hypertrophy at C5 and C6, left greater than right. | | | | Soft tissues: Normal. | | | | | | IMPRESSION - Mild cervical spondylosis at C4-C5 and C5-C6. No evidence of | | instability. | | | | Dictated and Signed by: Rashid Gonzalez MD | | Electronically signed: 08/23/2017 3:42 PM | + + + +---------+ + + | Performing | Address | City/State/Zipcode | Phone Number | | Organization | | | | + +---------+ + + | [facility] | | | | + +---------+ + + from Last 3 Months Insurance + +--------+ +------+ +---------+ | Payer | Benefi | Subscriber | Type | Phone | Address | | | t Plan | ID | | | | | | / | | | | | | | Group | | | | | + +--------+ +------+ +---------+ | MARIA ELENA | FLAQUITA | [id number] | PPO | [phone] | | | [place]OUR | | | [phone] | | | | E | | | | | | | FIRST | | | | | | | CHOICE | | | | | + +--------+ +------+ +---------+ + +--------+ +--------+ + + | Guarantor Name | Accoun | Relation to | Date | Phone | Billing Address | | | t Type | Patient | of | | | | | | | | | | + +--------+ +--------+ + + | BRADEN CARVER | Person | Self | [birth year] | Work: | [address] | | | al/Tre | | 1970 | [phone] | [place] [address] | | | keira | | | [phone] Home: | | | | | | | | | | | | | | [phone] | | | | | | | [phone] | | + +--------+ +--------+ + +
--- OUTSIDE RECORDS SUMMARY | ~2017-11-16 | XMS | Encounter Summary ---
Demographics + + + | Address | [address] | | | [place] [address] | + + + | Home Phone | | + + + | Preferred Language | Unknown | + + + | Marital Status | | + + + | Taoism Affiliation | 1013 | + + + | Race | Unknown | + + + | Ethnic Group | Unknown | + + + Author + + + | Author | [facility] | | | and [place] | + + + | Organization | [facility] | | | and [place] | [...] Team Providers + +------+ + | Care Furnace Loader Name | Role | Phone | + +------+ + | Gerard Olivas DO | PCP | | + +------+ + Reason for Visit + + + | Reason | Comments | + + + | Imaging Only | Cervical MRI | + + + Encounter Details +--------+ + + + + | Date | Type | Department | Care Team | Description | +--------+ + + + + | 10/04/ | Telephone | [facility] | Maico Klein MD | Imaging Only | | 2018 | | NEUROSURGERY [address] | [address] [place] | (Cervical MRI) | | | | [address] | [address] [place], [place] | | | | | [place], [place] | [address] | | | | | [address] | | | | | | [phone] | | | +--------+ + + + [...] [place] | | | | | | [address] | | | | | | | | +--------+---------+ + + + as of this encounter Visit Diagnoses Not on filein this encounter"
--- OUTSIDE RECORDS SUMMARY | ~2017-11-16 | XMS | Encounter Summary ---
Demographics + + + | Address | [address] | | | [place] [address] | + + + | Home Phone | | + + + | Preferred Language | Unknown | + + + | Marital Status | | + + + | Adventism Affiliation | 1013 | + + + | Race | Unknown | + + + | Ethnic Group | Unknown | + + + Author + + + | Author | [facility] | | | and [place] | + + + | Organization | [facility] | | | and [...] Team Providers + +------+ + | Care Catalog Specialist Name | Role | Phone | + [...] | | | | [place] | [address] | Cervical spinal cord | | | | [address] | | compression ([facility]); | | | | [phone] | | Cervical cord | | | | | | myelomalacia ([facility]); | | | | | | Cervical [...] [place] | | | | | | [address] | | | | | | | [...]
--- OUTSIDE RECORDS SUMMARY | ~2017-11-16 | XMS | Encounter Summary ---
Demographics + + + | Address | [address] | | | [place] [address] | + + + | Home Phone | | + + + | Preferred Language | Unknown | + + + | Marital Status | | + + + | Yarsani Affiliation | 1013 | + + + | Race | Unknown | + + + | Ethnic Group | Unknown | + + + Author + + + | Author | [facility] | | | and [place] | + + + | Organization | [facility] | | | and [place] [...] Team Providers + +------+ + | Care Auto Radio Mechanic Name | Role | Phone | + [...] | MD [address] | [address] | | | | | cord | [address] | [place], | | | | | myelomalacia | [place] [address] | [place] | | | | | ([facility]) | [place], | [address] | | | | | Cervical | [place] [address] | Phone: | | | | | spinal cord | Phone: | [phone] | | | | | compression | [phone] | Fax: | | | | | (HCC) | Fax: | [phone] | | | | | Cervical | [phone] | | | | | | spinal [...] | MD [address] | [address] | | | | | cord | [address] | [place], | | | | | myelomalacia | [address] | [place] | | | | | (HCC) | [place], | [address] | | | | | Cervical | [place] [address] | Phone: | | | | | spinal cord | Phone: | [phone] | | | | | compression | [phone] | Fax: | | | | | (HCC) | Fax: | [phone] | | | | | Cervical | [phone] | | | | | | spinal [...] | | (HCC) | [place], | [address] | | | | | Cervical | [place] [address] | Phone: | | | | | spinal cord | Phone: | [phone] | | | | | compression | [phone] | Fax: | | | | | (HCC) | Fax: | [phone] | | | | | Cervical | [phone] | | | | | | spinal [...] + + | 10/12/ | Hospital | [facility] | Maico Klein MD | Cervical cord | | 2018 | Encounter | [facility] [address] | [address] [place] | myelomalacia ([facility]); | | | | [address] [place], | [address] [place], [place] | Cervical spinal cord | | | | [place] [address] | [address] | compression ([facility]); | | | | [phone] | | Cervical spinal | | | [...] [place] | | | | | | [address] | | | | | | | [...] hemangioma is noted in the | | K8odagxiclv body. Prevertebral and paraspinal soft tissues show [...]
--- OUTSIDE RECORDS SUMMARY | ~2017-11-16 | XMS | Encounter Summary ---
Demographics + + + | Address | [address] | | | [place] [address] | + + + | Home Phone | | + + + | Preferred Language | Unknown | + + + | Marital Status | | + + + | Judaism Affiliation | 1013 | + + + | Race | Unknown | + + + | Ethnic Group | Unknown | + + + Author + + + | Author | [facility] | | | and [place] | + + + | Organization | [facility] | | | and [place] | [...] Team Providers + +------+ + | Care Delivery Route Driver Name | Role | Phone | + +------+ + | Gerard Olivas DO | PCP | | + +------+ + Reason for Referral Diagnostic/Screening (Routine) +--------+--------+ + + + + | Status | Reason | Specialty | Diagnoses / | Referred By | Referred To | | | | | Procedures | Contact | Contact | +--------+--------+ + + + + | Closed | | Radiology | Diagnoses | [place], | [facility] | | | | | Cervical | Raudel | [address] | | | | | spinal cord | VALENTIN Felipe | [place], | | | | | compression | [address] | [place] | | | | | ([facility]) | [address] | [address] | | | | | Cervical | [address] | Phone: | | | | | spondylosis | [place], | [phone] | | | | | with | [place] [address] | Fax: | | | | | radiculopath | Phone: | [phone] | | | | | y Foram[place] | [phone] | | | | | | stenosis of | Fax: | | | | | | cervical | [phone] | | | | | | region | | | | | | | Cervical | | | | | | | spinal | | | | | | | stenosis | | | | | | | Cervical | | | | | | | cord | | | | | | | myelomalacia | | | | | | | (HCC) | | | | | | | [...] | +--------+--------+ + + + + Diagnostic/Screening (Routine) +--------+--------+ + + + + | Status | Reason | Specialty | Diagnoses / | Referred By | Referred To | | | | | Procedures | Contact | Contact | +--------+--------+ + + + + | Denied | | MRI | Diagnoses | [place], | [facility] [address] | | | | | Cervical | [facility] | | | | | spinal cord | VALENTIN Felipe | [address] | | | | | compression | [address] | | | | | ([facility]) | [address] | [place], [place] | | | | | Cervical | [address] | [address] | | | | | spondylosis | [place], | Phone: | | | | | with | [place] [address] | [phone] | | | | | radiculopath | Phone: | Fax: | | | | | y [place] | [phone] | [phone] | | | | | stenosis of | Fax: | | | | | | cervical | [phone] | | | | | | region | | | | | | | Cervical | | | | | | | spinal | | | | | | | stenosis | | | | | | | Cervical | | | | | | | cord | | | | | | | myelomalacia | | | | | | | (HCC) | | | | | | | [...] | + + + | Follow-up | Neck pain radiates to both arms | + + + Encounter Details +--------+---------+ + + + | Date | Type | Department | Care Team | Description | +--------+---------+ + + + | 08/23/ | Office | [facility] | Raudel Brown | Cervical spinal cord | | 2018 | Visit | NEUROSURGERY [address] | [place] Felipe [address] | compression (HCC) | | | | [address] | [address] | (Primary Dx); | | | | [place] | [address] | Cervical spondylosis | | | | [address] | [address] | with radiculopathy; | | | | [phone] | | Foraminal stenosis | | | | | | of cervical region; | | | | | | Cervical spinal | | | | | | stenosis; Cervical | | | | | | cord myelomalacia | | | | | | (HCC); Degenerative | | | | | | disc disease, | | | | | | cervical | +--------+---------+ + + + Social [...] + + + | Blood Pressure | 125/86 | 08/23/2017 1602 PDT | + + + + | Pulse | 95 | 08/23/20171601 PDT | + + + + | Temperature | - | - | + + + + | Respiratory Rate | - | - | + + + + | Oxygen Saturation | - | - | + + + + | Inhaled Oxygen | - | - | | Concentration | | | + + + + | Weight | 153.9 kg (339 lb 4.6 | 08/23/20171601 PDT | | | oz) | | + + + + | Height | 185.4 cm (6' 1") | 08/23/2017 1602 PDT | + + + + | Body Mass Index | 44.76 | 08/23/2017 1602 PDT | + + + + in this encounter Progress Notes Raudel Brown PA-C - 08/23/2017 1545 PDTFormatting of this note may be different fr om the original. Raudel Brown PA-C [address] [facility], [address] [place], [place] [address] FAX: [phone] NEUROSURGERY HISTORY AND PHYSICAL EXAMINATION CHIEF COMPLAINT: Chief Complaint Patient presents with Follow-up Neck pain radiates to both arms HISTORY OF PRESENT ILLNESS: The patient is a 47 y.o. male with the complaint of neck and a rm pain symptoms that began over 2 years ago. The patient describes worsening neck pain. Hi s neck pain will radiate to his bilateral shoulder pain. He will also have radiating pain in both arms into his hands. 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 The patient states when he rides his motorcycle both of his arms will fall asleep . The symptoms have been gradually worsening. He rates the pain as moderate. The symptoms a re daily. He describes the pain as numbing, tingling and aching. The patient describes arm symptoms that occur on both sides but worse on the left. The arm symptoms account for 50% of his symptoms. The arm symptoms are intermittent, and the sympt oms travel from the neck into the shoulder blades radiating to both arms and hands. The pat ient also describes the loss of strength in [...] Procedure Laterality Date APPENDECTOMY 1992 BACK SURGERY 2006 Cyst removal from back KNEE SURGERY Right 1993 Knee arthroscopy with lateral release TONSILLECTOMY 2002 VASECTOMY 1993 WRIST SURGERY Right 1991 Cyst Removal; Arnaldo CURRENT MEDICATIONS: Current Outpatient Prescriptions Medication Sig Dispense Refill Acetaminophen (TYLENOL PO) Take by mouth as needed. baclofen (LIORESAL) 20 mg tablet Ergocalciferol (VITAMIN D2) 2000 units TABS ergocalciferol (vitamin D2) 50,000 unit cap sabrina Take 1 capsule every week by oral route. levothyroxine (SYNTHROID) 50 mcg tablet Take 1 tablet by mouth Daily. meloxicam (MOBIC) 15 mg tablet meloxicam 15 mg tablet Take 1 tablet every day by oral route with meals. sertraline (ZOLOFT) 50 mg tablet No current facility-administered medications for this visit. [...] loss Brother Cancer Paternal Uncle REVIEW OF SYSTEMS: GENERALLY: No fever, no night sweats, no anemia, no fatigue, no recent profound weight ch anges. EYES: No eye problems, + use of corrective lenses, no eye injury, no double vision, no bli ndness. EARS, NOSE, AND THROAT: No changes in taste or smell, no hearing difficulty, no ringing in the ears, no ear drainage, no dizziness, no voice changes, no difficulty swallowing, no sig nificant snoring, no sleep apnea, no sinus problems, no major dental work. NEUROLOGICALLY: Please see the review of systems discussed above in the history of present illness. In addition, the patient has numbness/pain of arms, awake with numbness/pain, samuel n in neck and back. PSYCHIATRIC: No depression, no sleep disorders, no anxiety, no bipolar disorder, no psycho tic episodes. CARDIOVASCULAR: No heart attacks, no heart [...] no rheumatoid arthritis. PHYSICAL EXAMINATION: Blood pressure 125/86, pulse 95, height 1.854 m (6' 1"), weight (!) 153.9 kg (339 lb 4.6 oz ). Body mass index is 44.76 kg/m. 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 CRANIAL NERVES: II: Acuity is intact. [...] 5 Wrist Extension 5 5 Median Intrinsics 5 5 Ulnar Intrinsics 5 5 Convention Manager Strength 5 5 Hip Flexion 5 5 Hip Extension 5 5 Knee Flexion 5 5 Knee Extension 5 5 Dorsiflexion 5 5 Extensor Hallicus Longus 5 5 Plantarflexion 5 5 SENSORY EXAM: Sensory exam shows no diminished sensation to light touch or pain throughout the upper and lower extremities. REFLEXES: (2 OR 2+ IS NORMAL) REFLEX: RIGHT LEFT BICEPS 1 1 BRACHIORADIALIS 1 1 TRICEPS 1 1 PATELLAR 2 2 ACHILLES 1 1 CARPENTER'S ABSENT ABSENT PLANTAR DOWNGOING DOWNGOING GAIT: Gait is steady. PERIPHERAL NERVE/MISC: Tinel is negative at the wrists and elbows bilaterally. Phalen is negative. Straight leg raise is negative bilaterally. Rashid's test of the hips is negative bilaterally. TEST AND RADIOGRAPHIC REVIEW: The patient's imaging was reviewed in detail with the patient today during the visit. The MRI from 2015 shows degenerative changes at C4-5 and C5-6 with central stenosis as well as b ilateral foraminal stenosis. Cervical x-rays show no major instability. ASSESSMENT: NEUROSURGICAL DIAGNOSES: Encounter Diagnoses Name Primary? Cervical spinal cord compression (HCC) Yes Cervical spondylosis with radiculopathy Foraminal stenosis of cervical region Cervical spinal stenosis Cervical cord myelomalacia (HCC) Degenerative disc disease, cervical GENERAL DIAGNOSES: Past Medical History: Diagnosis Date Anxiety Depression History of kidney stones PLAN: Braden Carver presented today for re-evaluation of an ongoing neck issue and his neurologi c problems. The patient has progressive neck and arm symptoms . The patient has progressive symptoms d espite non-operative measures. We had a lengthy discussion with the patient about his options for care including surgical and non-surgical options. In discussing the surgical options, we discussed in detail the patient's options for a cerv ical disc arthroplasty at C4-5 and C5-6. The patient understands that in most instances the recovery from surgery can be lengthy and sometimes difficult. The patient will obtain a new Cervical MRI and return to our office to discuss imaging. Th e patient has a diving trip planned in the [facility] in the middle of December. He states he woul d like to be either completely healed from the surgery by that time or have surgery after hi s planned trip. Also recommend evaluation for PENNY prior to cervical surgery He will check with his PCP or we could order eval as well if needed The patient would to obtain the recommended imaging and then return to discuss the findings and options for care. ELECTRONICALLY SIGNED BY: Raudel Brown PA-C, 08/23/2017 16:40 I, Raudel Brown PA-C, personally performed the services described in this documentation , as scribed by Venus Moscoso CMA in my presence, and it is both accurate and complete. Raudel Brown PA-C 08/23/2017 in this encounter Plan of Treatment +--------+---------+ + + + | Date | Type | Specialty | Care Team | Description | +--------+---------+ + + + | 12/08/ | Office | Sleep Medicine | Lissa Reyes MD | | | 2018 | Visit | | [address] | | | | | | [place] | | | | | | [address] | | | | | | | | +--------+---------+ + + + + +--------+ + + | Name | Priori | Associated Diagnoses | Order Schedule | | | ty | | | + +--------+ + + | MRI Cervical Spine wo Contrast | Routin | Cervical spinal | Expected: 09/02/2017 | | | e | cord compression | (Approximate), | | | | (HCC) Cervical | Expires: 08/22/2018 | | | | spondylosis with | | | | | radiculopathy | | | | | Foraminal stenosis | | | | | of cervical region | | | | | Cervical spinal | | | | | stenosis Cervical | | | | | cord myelomalacia | | | | | ([facility]) Degenerative | | | | | disc disease, | | | | | cervical | | + +--------+ + + | MRI Cervical Spine wo Contrast | Routin | Cervical spinal | Expected: | | | e | cord compression | 08/23/2017, Expires: | | | | (HCC) Cervical | 08/23/2018 | | | | spondylosis with | | | | | radiculopathy | | | | | Foraminal stenosis | | | | | of cervical region | | | | | Cervical spinal | | | | | stenosis Cervical | | | | | cord myelomalacia | | | | | ([facility]) Degenerative | | | | | disc disease, | | | | | cervical | | + +--------+ + + as of this encounter Visit Diagnoses + + | Diagnosis | + + | Cervical spinal cord compression ([facility]) - Primary | + + | Unspecified disease of spinal cord | + + | Cervical spondylosis with radiculopathy | + + | Cervical spondylosis with myelopathy | + + | Foraminal stenosis of cervical region | + + | Spinal stenosis in cervical region | + + | Cervical spinal stenosis | + + | Spinal stenosis in cervical region | + + | Cervical cord myelomalacia (HCC) | + + | Other myelopathy | + + | Degenerative disc disease, cervical | + + | Degeneration of cervical intervertebral disc | + +
--- OUTSIDE RECORDS SUMMARY | ~2017-11-16 | XMS | Encounter Summary ---
Demographics + + + | Address | [address] | | | [place] [address] | + + + | Home Phone | | + + + | Preferred Language | Unknown | + + + | Marital Status | | + + + | Uatsdin Affiliation | 1013 | + + + | Race | Unknown | + + + | Ethnic Group | Unknown | + + + Author + + + | Author | [facility] | | | and [place] | + + + | Organization | [facility] | | | and [place] [...] Team Providers + +------+ + | Care Manager Scientific Name | Role | Phone | + +------+ + | Gerard Olivas DO | PCP | | + +------+ + Encounter Details +--------+ + + + + | Date | Type | Department | Care Team | Description | +--------+ + + + + | 08/23/ | [facility] | [facility] | Maico Klein MD | Neck pain | | 2018 | Encounter | MED CTR XRAY [address] | [address] [place] | | | | | [place] | [address] | | | | | [place] [address] | [address] | | | | | [phone] | | | +--------+ + + + [...] [place] | | | | | | [address] | | | | | | | [...] section. | + +--------+ + + + in this encounter Results XR Cervical Spine 4 or 5 Vws [...] + | Diagnosis | + + | Neck pain | + + | Cervicalgia | + +"
--- OUTSIDE RECORDS SUMMARY | ~2017-11-16 | XMS | Encounter Summary ---
Demographics + + + | Address | [address] | | | [place] [address] | + + + | Home Phone | | + + + | Preferred Language | Unknown | + + + | Marital Status | | + + + | Shinto Affiliation | 1013 | + + + | Race | Unknown | + + + | Ethnic Group | Unknown | + + + Author + + + | Author | [facility] | | | and [place] | + + + | Organization | [facility] | | | and [place] [...] Team Providers + +------+ + | Care Story Reader Name | Role | Phone | + [...] [place], [place] | | | | | [place], [place] | [address] | | | | | [address] | | | | | | [phone] | | | +--------+ + + + [...] [place] | | | | | | [address] | | | | | | | | +--------+---------+ + + + as of this encounter Visit Diagnoses Not on filein this encounter"
--- OUTSIDE RECORDS SUMMARY | ~2017-11-16 | XMS | Encounter Summary ---
Demographics + + + | Address | [address] | | | [place] [address] | + + + | Home Phone [...] + | Author | [facility] | | | and [place] | + + + | Organization | [facility] | | | and [place] | [...] Team Providers + +------+ + | Care Survey Engineer Name | Role | Phone | + +------+ + | Gerard Olivas DO | PCP | | + +------+ + Encounter Details +--------+ + + + + | Date | Type | Department | Care Team | Description | +--------+ + + + + | 08/23/ | [facility] | [facility] | Maico Klein MD | Neck pain | | 2018 | Encounter | MED CTR XRAY [address] | [address] [place] | | | | | [place] | [address] | | | | | [place] [address] | [address] | | | | | [phone] | | | +--------+ + + + [...] [place] | | | | | | [address] | | | | | | | [...]
--- OUTSIDE RECORDS SUMMARY | ~2017-11-16 | XMS | Clinical Summary ---
Demographics + + + | Address | [address] | | | [place] [address] | + + + | Home Phone | | + + + | Preferred Language | Unknown | + + + | Marital Status | | + + + | Caodaism Affiliation | 1013 | + + + | Race | Unknown | + + + | Ethnic Group | Unknown | + + + Author + + + | Author | [facility] | | | and [place] | + + + | Organization | [facility] | | | and [place] [...] Team Providers + +------+ + | Care Fire Engine Pump Operator Name | Role | Phone | + [...] Visit | | VALENTIN Felipe | myelomalacia ([facility]) | | | | | | (Primary [...] | | | | | | compression ([facility]); | | | | | | Cervical [...] [place] | | | | | | [address] | | | | | | | [...] hemangioma is noted in the | | [id number] body. Prevertebral and paraspinal soft tissues show [...] +---------+ | MARIA ELENA | FLAQUITA | [phone] | PPO | [phone] | | [...] | 1970 | [phone] | [place] [address] | | | keira | | | [address] Home: | | | | | | | | | | | | | | [phone] | | | | | | [phone] | | + +--------+ +--------+ + +
--- OUTSIDE RECORDS SUMMARY | ~2017-11-16 | XMS | Encounter Summary ---
Demographics + + + | Address | [address] | | | [place] [address] | + + + | Home Phone | | + + + | Preferred Language | Unknown | + + + | Marital Status | | + + + | Lutheran Affiliation | 1013 | + + + | Race | Unknown | + + + | Ethnic Group | Unknown | + + + Author + + + | Author | [facility] | | | and [place] | + + + | Organization | [facility] [...] Team Providers + +------+ + | Care Chief General Pediatric Clinic Name | Role | Phone | + [...] | Cervical | Raudel | [address] | | | | | spinal cord | [place] Felipe | [place], | | | | | compression | [address] | [place] | | | | | ([facility]) | [address] | [address] | | | | | Cervical | [address] | Phone: | | | | | spondylosis | [place], | [phone] | | | | | with | [place] [address] | Fax: | | | | | radiculopath | Phone: | [phone] | | | | | y [place] | [phone] | | | | | | stenosis of | Fax: | | | | | | cervical | [phone] | | | | | | region [...] | | | | | Cervical | [facility] | | | | | spinal cord | VALENTIN Felipe | [address] | | | | | compression | [address] | | | | | ([facility]) | [address] | [place], [place] | | | | | Cervical | [address] | [address] | | | | | spondylosis | [place], | Phone: | | | | | with | [place] [address] | [phone] | | | | | radiculopath | Phone: | Fax: | | | | | y For[place] | [phone] | [phone] | | | | | stenosis of | Fax: | | | | | | cervical | [phone] | | | | | | region [...] + | 08/23/ | Office | [facility] | Raudel Brown | Cervical spinal cord | | 2018 | Visit | NEUROSURGERY [address] | [address] | compression (HCC) | | | | [address] | [address] | (Primary Dx); | | | | [place] | [place] | Cervical spondylosis | | | | [address] | [address] | with radiculopathy; | | | | [phone] | | Foraminal stenosis | | | [...] om the original. 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 CRANIAL NERVES: II: Acuity is intact. [...] Intrinsics 5 5 Ulnar Intrinsics 5 5 Button Tufter Strength 5 5 Hip Flexion 5 5 [...] 1 PATELLAR 2 2 ACHILLES 1 1 CAPRENTER'S ABSENT ABSENT PLANTAR DOWNGOING DOWNGOING GAIT: Gait [...] has a diving trip planned in the [facility] in the middle of December. He [...] [place] | | | | | | [address] | | | | | | | [...] cord myelomalacia | | | | | ([facility]) Degenerative | | | | | disc [...] cord myelomalacia | | | | | ([facility]) Degenerative | | | | | disc disease, | | | | | cervical | | + +--------+ + + as of this encounter Visit Diagnoses + + | Diagnosis | + + | Cervical spinal cord compression ([facility]) - Primary | + + | Unspecified [...]
--- OUTSIDE RECORDS SUMMARY | ~2017-11-16 | XMS | Encounter Summary ---
Demographics + + + | Address | [address] | | | [place] [address] | + + + | Home Phone | | + + + | Preferred Language | Unknown | + + + | Marital Status | | + + + | Worship Affiliation | 1013 | + + + | Race | Unknown | + + + | Ethnic Group | Unknown | + + + Author + + + | Author | [facility] | | | and [place] | + + + | Organization | [facility] | | | and [...] Team Providers + +------+ + | Care Director Hair Name | Role | Phone | + [...] | | | | | | [place] [address] | | | | | | [phone] | | | +--------+ + + + [...] [place] | | | | | | [address] | | | | | | | | +--------+---------+ + + + as of this encounter Visit Diagnoses Not on filein this encounter"
--- OUTSIDE RECORDS SUMMARY | ~2017-11-16 | XMS | Encounter Summary ---
Demographics + + + | Address | [address] | | | [place] [address] | + + + | Home Phone [...] + + | Author | [facility] | | | and Adolfoana | + + + | Organization | [facility] | | | and Adolfoana [...] Team Providers + +------+ + | Care Commercial Underwriter Name | Role | Phone | + [...] | MD [address] | [address] | | | | | cord | [address] | [place], | | | | | myelomalacia | [address] | [place] | | | | | ([facility]) | [place], | [address] | | | | | Cervical | [place] [address] | Phone: | | | | | spinal cord | Phone: | [phone] | | | | | compression | [phone] | Fax: | | | | | (HCC) | Fax: | [phone] | | | | | Cervical | [phone] | | | | | | spinal [...] | + + + | Follow-up | MRI denial | + + + Encounter Details +--------+---------+ + + + | Date | Type | Department | Care Team | Description | +--------+---------+ + + + | 10/04/ | Office | [facility] | Maico Klein MD | Cervical cord | | 2018 | Visit | NEUROSURGERY [address] | [address] [place] | myelomalacia (HCC) | | | | [address] | [address] [place], [place] | (Primary Dx); | | | | [place], [place] | [address] | Cervical spinal cord | | | | [address] | | compression ([facility]); | | | | [phone] | | Cervical spinal | | | [...] | | | | with myelopathy | +--------+---------+ + + + Social History [...] + + + | Blood Pressure | 111/77 | 10/04/20171246 PDT | + + + + | Pulse | 77 | 10/04/20171246 PDT | + + + + | Temperature | - | - | + + + + | Respiratory Rate | 20 | 10/04/20171246 PDT | + + + + | Oxygen Saturation | - | - | + + + + | Inhaled Oxygen | - | - | | Concentration | | | + + + + | Weight | 157.9 kg (348 lb 1.7 | 10/04/20171246 PDT | | | oz) | | + + + + | Height | 185.4 cm (6' 1") | 10/04/20171246 PDT | + + + + | Body Mass Index | 45.93 | 10/04/2017 1247 PDT | + + + + in this encounter Instructions Patient Instructions - Sandrine Goodson, Law Instructor - 10/04/2017 1245 PDTIt was leeanna younger to see you today, we discussed the following in your appointment: 1. We will work on getting the MRI done. We need the new MRI to help decide what he next st ep is. We will be in touch with you. It can take a week or two. Please call if you need. 2. Please let us know if things worsen even more so then what they are.in this encounter Progress Notes Maico Klein MD - 10/04/2017 1245 PDTFormatting of this note may be different from the franklin sergo. Maico Klein MD [address] [place] [address], [address] [place] [address] FAX: [phone] NEUROSURGERY FOLLOW-UP CHIEF COMPLAINT: Chief Complaint Patient presents with Follow-up MRI denial HISTORY OF PRESENT ILLNESS: The patient is a 47 y.o. male with the complaint of neck and a rm pain symptoms that began over 2 years ago. The patient describes worsening neck pain. His neck pain will radiate to both shoulders..He will also have radiating pain in both arms into his hands and down to the fingers. The patient does a lot office work. If he is workin g on the computer or any time he is holding his hands out in front of him they go to sleep a nd they start to ache. The patient states when he rides his motorcycle both of his arms will fall asleep. He is unable to ride his motorcycle more than 30 minutes, other barbour he has to stop for about an hour to let the feeling come back into his arms. Took him a whole day to get from [place], [place] to [place] because he had to stop so many times. If he tur ns his neck then it starts to hurt and makes his arms go numb. He is not able to go [place] as often as he had previously been. This neck pain and numbness have increased signific antly with no improvement. He had to quit going to the gym because he is not able to work ou t given the increased weakness, pain and numbness. His activities of daily living are a stru ggle to do. It is affecting his life greatly not being able to do anything with out [...] with numbness/pain, samuel n in neck and back, weakness and muscle aching. . PSYCHIATRIC: No depression, no sleep disorders, no [...] no rheumatoid arthritis. PHYSICAL EXAMINATION: Blood pressure 111/77, pulse 77, resp. rate 20, height 1.854 m (6' 1"), weight (!) 157.9 kg (348 lb 1.7 oz). Body mass index is 45.93 kg/m. 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 CRANIAL NERVES: II: Acuity is intact. [...] 5 Wrist Extension 5 5 Median Intrinsics 4/5 5 Ulnar Intrinsics 4/5 5 Tour Conductor Strength 4/5 5 Hip Flexion 5 5 Hip Extension [...] today during the visit. The MRI from 2014 shows degenerative changes at C4-5 and C5-6 with central stenosis as well as b ilateral foraminal stenosis. There was some early cord signal change back then. Cervical x-rays show no major instability. ASSESSMENT: NEUROSURGICAL DIAGNOSES: Encounter Diagnoses Name Primary? Cervical cord myelomalacia (HCC) Yes Cervical spinal cord compression (HCC) Cervical spinal stenosis Cervical spondylosis with radiculopathy Foraminal stenosis of cervical region Degenerative disc disease, cervical Cervical spondylosis with myelopathy GENERAL DIAGNOSES: Past Medical History: Diagnosis Date [...] be lengthy and sometimes difficult. The patient would like to obtain the MRI urgently. This is medically indicated due to his increasing reflexes, weakness, pain, and stenosis in the past. A further delay will represe nt negligent practice of medicine by his insurance company in my opinion. ELECTRONICALLY SIGNED BY: Maico Klein MD, 10/04/2017 13:17in this encounter Plan of Treatment +--------+---------+ + + + | Date | Type | Specialty | Care Team | Description | +--------+---------+ + + + | 12/08/ | Office | Sleep Medicine | Lissa Reyes MD | | | 2017 | Visit | | [address] [facility] | | | | | | [place] | | | | | | [address] | | | | | | | | +--------+---------+ + + + as of this encounter Results MRI Cervical Spine wo [...] hemangioma is noted in the | | [id number] body. Prevertebral and paraspinal soft tissues show [...]
--- OUTSIDE RECORDS SUMMARY | ~2017-11-16 | XMS | Encounter Summary ---
Demographics + + + | Address | [address] | | | [place] [address] | + + + | Home Phone | | + + + | Preferred Language | Unknown | + + + | Marital Status | | + + + | Voodoo Affiliation | 1013 | + + + | Race | Unknown | + + + | Ethnic Group | Unknown | + + + Author + + + | Author | [facility] | | | and [place] | + + + | Organization | [facility] | | | and Adolfoana [...] Team Providers + +------+ + | Care Clammer Name | Role | Phone | + +------+ + | Gerard Olivas DO | PCP | | + +------+ + Reason for Visit + + + | Reason | Comments | + + + | Referral | | | (PreAuthorization) | | + + + Encounter Details +--------+ + + + + | Date | Type | Department | Care Team | Description | +--------+ + + + + | 11/14/ | Telephone | [facility] | Maico Klein MD | Referral | | 2018 | | NEUROSURGERY [address] | [address] [place] | (PreAuthorization) | | | | [address] | [address] [place], [place] | | | | | [place], [place] | [address] | | | | | [address] | | | | | | [phone] | | | +--------+ + + + [...] [place] | | | | | | [address] | | | | | | | | +--------+---------+ + + + as of this encounter Visit Diagnoses Not on filein this encounter"
--- OUTSIDE RECORDS SUMMARY | ~2017-11-16 | XMS | Encounter Summary ---
Demographics + + + | Address | [address] | | | [place] [address] | + + + | Home Phone | | + + + | Preferred Language | Unknown | + + + | Marital Status | | + + + | Jain Affiliation | 1013 | + + + | Race | Unknown | + + + | Ethnic Group | Unknown | + + + Author + + + | Author | [facility] | | | and [place] | + + + | Organization | [facility] | | | and Adolfoana [...] Team Providers + +------+ + | Care Assembly Person Name | Role | Phone | + [...] | MD [address] | [address] | | | | | cord | [address] | [place], | | | | | myelomalacia | [address] | [place] | | | | | ([facility]) | [place], | [address] | | | | | Cervical | [place] [address] | Phone: | | | | | spinal cord | Phone: | [phone] | | | | | compression | [phone] | Fax: | | | | | (HCC) | Fax: | [phone] | | | | | Cervical | [phone] | | | | | | spinal [...] + + | 10/04/ | Office | [facility] | Maico Klein MD | Cervical cord | | 2018 | Visit | NEUROSURGERY [address] | [address] [place] | myelomalacia (HCC) | | | | [address] | [address] [place], [place] | (Primary Dx); | | | | [place], [place] | [address] | Cervical spinal cord | | | | [address] | | compression ([facility]); | | | | [phone] | | Cervical spinal | | | [...] encounter Instructions Patient Instructions - Sandrine Goodson, Civil Cad Designer - 10/04/2017 1245 PDTIt was leeanna younger [...] from the franklin sergo. Maico Klein MD [address] [place] [address], [address] [place] [address] FAX: [phone] NEUROSURGERY FOLLOW-UP CHIEF COMPLAINT: Chief Complaint Patient [...] him a whole day to get from [place], [place] to [place], [place] because he had to stop so many times. If he tur ns his neck then it starts to hurt and makes his arms go numb. He is not able to go [place]uba [place] as often as he had previously been. [...] Intrinsics 4/5 5 Ulnar Intrinsics 4/5 5 Zigzag Appliquer Strength 4/5 5 Hip Flexion 5 5 [...] 2017 | Visit | | [address] [facility] | | | | | | [place] | | | | | | [address] | | | | | | | [...] hemangioma is noted in the | | [id number] body. Prevertebral and paraspinal soft tissues show [...]
--- OUTSIDE RECORDS SUMMARY | ~2017-11-16 | XMS | Encounter Summary ---
Demographics + + + | Address | [address] | | | [place] [address] | + + + | Home Phone | | + + + | Preferred Language | Unknown | + + + | Marital Status | | + + + | Protestant Affiliation | 1013 | + + + | Race | Unknown | + + + | Ethnic Group | Unknown | + + + Author + + + | Author | [facility] | | | and [place] | + + + | Organization | [facility] | | | and Adolfoana [...] Team Providers + +------+ + | Care School Admissions Representative Name | Role | Phone | + +------+ + | Gerard Olivas DO | PCP | | + +------+ + Reason for Visit + + + | Reason | Comments | + + + | Referral (Follow up) | | + + + Encounter Details +--------+ + + + + | Date | Type | Department | Care Team | Description | +--------+ + + + + | 09/25/ | Telephone | [facility] [place] | Maico Klein MD | Referral (Follow up) | | 2018 | | NEUROSURGERY [address] | [address] [place] | | | | | [address] | [address] [place], [place] | | | | | [place], [place] | [address] | | | | | [address] | | | | | | [phone] | | | +--------+ + + + [...]
--- OUTSIDE RECORDS SUMMARY | ~2017-11-16 | XMS | Encounter Summary ---
Demographics + + + | Address | [address] | | | [place] [address] | + + + | Home Phone | | + + + | Preferred Language | Unknown | + + + | Marital Status | | + + + | Cheondoism Affiliation | 1013 | + + + | Race | Unknown | + + + | Ethnic Group | Unknown | + + + Author + + + | Author | [facility] | | | and Adolfoana | + + + | Organization | [facility] | | | and Adolfoana [...] Providers + +------+ + | Care Commercial Reporter Name | Role | Phone | + [...] + | 11/14/ | Telephone | [facility] | Maico Klein MD | Referral | | 2018 | | NEUROSURGERY [address] | [address] [place] | (PreAuthorization) | | | | [address] | [address] [place], [place] | | | | | [place], [place] | [address] | | | | | [address] | | | | | | [phone] | | | +--------+ + + + [...]
--- OUTSIDE RECORDS SUMMARY | ~2017-11-16 | XMS | Encounter Summary ---
Demographics + + + | Address | [address] | | | [place] [address] | + + + | Home Phone | | + + + | Preferred Language | Unknown | + + + | Marital Status | | + + + | Church Affiliation | 1013 | + + + | Race | Unknown | + + + | Ethnic Group | Unknown | + + + Author + + + | Author | [facility] | | | and Adolfo[place] | + + + | Organization | [facility] | | | and [...] Team Providers + +------+ + | Care Gate Person Name | Role | Phone | [...] | | apnea) | [address] | [place], | | | | | | [address] | [place] [address] | | | | | | [place], | Phone: | | | | | | [place] [address] | [phone] | | | | | | Phone: | Fax: | | | | | | [phone] | [phone] | | | | | | Fax: | | | | | | | [phone] | | + + + + + [...] | (Primary Dx); | | | | [place], [place] | [place], [place] | Cervical spinal cord | | | | [address] | [address] | compression (HCC); | | | | [phone] | | Cervical spondylosis | | | [...] encounter Instructions Patient Instructions - Diya Kaminski, Facilities Assistant - 11/10/2017844 PDTIt wa s a pleasure [...] om the original. Raudel Brown PA-C [address] [facility], [address] [place] [address] FAX: [phone] NEUROSURGERY FOLLOW-UP CHIEF COMPLAINT: Chief Complaint Patient [...] him a whole day to get [place], [place] to [place] be cause he had to stop [...] has no apparent deficits with short or rn long term care memory. CRANIAL NERVES: II: Acuity is intact. [...] Intrinsics 4+/5 5 Ulnar Intrinsics 4+/5 5 Crabber Strength 4+/5 5 Hip Flexion 5 5 [...] [place] | | | | | | [address] | | | | | | | [...]
--- OUTSIDE RECORDS SUMMARY | ~2017-11-16 | XMS | Encounter Summary ---
Demographics + + + | Address | [address] | | | [place] [address] | + + + | Home Phone | | + + + | Preferred Language | Unknown | + + + | Marital Status | | + + + | Cheondoism Affiliation | 1013 | + + + | Race | Unknown | + + + | Ethnic Group | Unknown | + + + Author + + + | Author | [facility] | | | and Adolfoana | + + + | Organization | [facility] | | | and Adolfoana [...] Team Providers + +------+ + | Care Spooler Operator Automatic Name | Role | Phone | + [...] [place], [place] | | | | | [place], [place] | [address] | | | | | [address] | | | | | | [phone] | | | +--------+ + + + [...] | | | | | | [place] | | | | | | [address] | | | | | | | | +--------+---------+ + + + as of this encounter Visit Diagnoses Not on filein this encounter"
[2017-11-16] MEDS ORDERED: CYCLOBENZAPRINE10 MG PO (12:43)
[2017-11-16] MEDS ORDERED: TRAZODONE HCL100 MG PO (12:44)
[2017-11-16] MEDS ORDERED: GABAPENTIN300 MG PO (12:44)
[2017-11-16] MEDS ORDERED: DELTASONE20 MG PO (13:00)
== END 2017-11-16 13:05 | disposition home or self-care (01) ==
LOC: ED 12:36
DX: R22.0 Localized swelling, mass and lump, head (principal); Z87.891 Personal history of nicotine dependence; Z79.899 Other long term (current) drug therapy
CPT/HCPCS: 99282; J7512